=== PATIENT | female | born 1930 ===

== ENCOUNTER 2017-04-09 10:02 | Day surgery (SDC) | payer MEDICARE ==
[~2017-04-09] VITALS: Ht 160 cm; Wt 62.8 kg
[~2017-04-09 10:02] MED LIST: Adalat/Procardi20 MG; HYDCHL12.5; LOSHYD100 PO; Micro-K10 MEQ; OMEPRAZOLE MAGN20 MG; VITAMIN D32000 UNIT PO
[2017-04-09] MEDS ORDERED: AMLO5 PO (11:54)
== END 2017-04-09 14:23 | disposition home or self-care (01) ==
LOC: ORSCSDS 10:02
DX: H02.834 Dermatochalasis of left upper eyelid (principal); H02.422 Myogenic ptosis of left eyelid; K21.9 Gastro-esophageal reflux disease without esophagitis; I10 Essential (primary) hypertension; J45.909 Unspecified asthma, uncomplicated; Z79.899 Other long term (current) drug therapy
CPT/HCPCS: J0171; J7040